=== PATIENT | female | born 1995 | race African-American/Black ===

== ENCOUNTER 2025-06-09 00:03 | Emergency (ER) | payer OTHER ==
[~2025-06-09] VITALS: Ht 175.3 cm; Wt 109.1 kg
[2025-06-09] MEDS ORDERED: AMOX500C2 PO (00:50)
[2025-06-09] MEDS ORDERED: IBUP-1493 PO (00:50)
[2025-06-09 01:02] LABS: APPEARANCE,URINE CLEAR (CLEAR); GLUCOSE, URINE (UA) NEGATIVE (NEGATIVE); LEUKOCYTE ESTERASE ,URINE NEGATIVE (NEGATIVE); NITRATE,URINE NEGATIVE (NEGATIVE); OCCULT BLOOD,URINE NEGATIVE (NEGATIVE); SPECIFIC GRAVITIY, URINE 1.004 (1.003-1.030)
[2025-06-09] MEDS: AMOXICILLIN TRIHYDRATE 250 MG CAPSULE PO ONE (01:07)
[2025-06-09] MEDS: IBUPROFEN 800 MG TABLET PO ONE (01:07)
[2025-06-09] MEDS: HYDROCODONE/ACETAMINOPHEN 5-325 MG TABLET PO ONE (01:07)
[2025-06-09 01:34] LABS: HCG,QUAL URINE NEGATIVE (NEGATIVE)
[2025-06-09 02:14] VITALS: BP 118/77; PULSE 70; RESP 16; TEMP 98.1; O2SAT 99
== END 2025-06-09 02:38 | disposition home or self-care (01) ==
LOC: EMS 00:03
DX: K02.9 Dental caries, unspecified (principal); I10 Essential (primary) hypertension; F31.9 Bipolar disorder, unspecified
CPT/HCPCS: 81003; 84703; 99284